=== PATIENT | male | born 1950 ===

== ENCOUNTER → 2025-06-10 | Outpatient (REF) | payer OTHER ==
[2025-06-10 13:24] LABS: APPEARANCE, URINE CLEAR (CLEAR); BACTERIA, URINE AUTO NEGATIVE (NEGATIVE); BILIRUBIN, URINE AUTO NEGATIVE (NEGATIVE); BLOOD, URINE BLOOD NEGATIVE (NEGATIVE); CALCIUM OXALATE CRYSTALS SMALL; GLUCOSE, URINE (UA) AUTO 3+ mg/dL (NEGATIVE); KETONE, URINE AUTO NEGATIVE (NEGATIVE); LEUKOCYTE ESTERASE, URINE AUTO NEGATIVE (NEGATIVE); MUCUS, URINE SMALL (NEGATIVE); NITRITE, URINE AUTO NEGATIVE (NEGATIVE); PROTEIN, URINE AUTO NEGATIVE (NEGATIVE); RBC, URINE AUTO 2 /HPF (0-3); SPECIFIC GRAVITY URINE AUTO 1.023 (1.002-1.035); SQUAMOUS EPITHELIAL CELL UR AU 1 /HPF (0-6); UROBILINOGEN, URINE AUTO 0.2 mg/dL (0.0-2.0); WBC, URINE AUTO 1 /HPF (0-3)
[2025-06-10 13:45] LABS: CREATININE, URINE 115.9 MG/DL; MALB URINE SIEMENS < 3.0 MG/L
[2025-06-10 14:18] LABS: PSA SCREENING 1.15 NG/ML (< 4.00)
[2025-06-10 14:26] LABS: ESTIMATED AVERAGE GLUCOSE 180.0 MG/DL (60-110)
[2025-06-10 14:27] LABS: ALT/SGPT 56 U/L (7.0-40); AST/SGOT 37 U/L (<34); CALCIUM LEVEL 8.9 MG/DL (8.3-10.6); CARBON DIOXIDE LEVEL 30 MMOL/L (20-31); CHLORIDE LEVEL 102 MMOL/L (98-107); CHOLESTEROL LEVEL 163 MG/DL (<200); CHOLESTEROL RISK RATIO 3.70 (<5); CREATININE FOR GFR 0.79 MG/DL (0.70-1.30); GLOMERULAR FILTRATION RATE > 90.0 (>42); LDL CHOLESTEROL 98.4 MG/DL (<100); NON-HDL-C 119.0 MG/DL; POTASSIUM SERUM 4.4 MMOL/L (3.5-5.1); SODIUM LEVEL 142 MMOL/L (136-145); TRIGLYCERIDES LEVEL 103 MG/DL (<150)
[2025-06-12 19:52] LABS: HIV-1 RNA PCR QUANT 2 54 copies/mL (NOT DETECTED); HIV-1 RNA PCR QUANT 3 1.73 (NOT DETECTED)
[2025-06-13 06:07] LABS: % CD4 21 % (30-61); %CD8 36 % (12-42); ABSOLUTE CD4 CELLS 384 cells/uL (490-1740); ABSOLUTE CD8 CELLS 657 cells/uL (180-1170); ABSOLUTE LYMPHOCYTES 1815 cells/uL (850-3900); CD4 CD8 RATIO 0.58 (0.86-5.00)
== END ==
LOC: M SFHCPLAZ 09:18
PROVIDERS: ATTEND Internal Medicine Infectious Disease
DX: B20 Human immunodeficiency virus [HIV] disease (principal); E11.9 Type 2 diabetes mellitus without complications; E78.5 Hyperlipidemia, unspecified; I10 Essential (primary) hypertension
CPT/HCPCS: 80053; 80061; 81001; 82043; 83036; 84443; 86360; 87536; G0103